=== PATIENT | male | born 1995 | race Caucasian/White ===

== ENCOUNTER 2019-10-05 20:20 | Emergency (ER) | payer MEDICAID ==
[~2019-10-05] VITALS: Ht 185.4 cm; Wt 65.9 kg
[2019-10-05 22:18] VITALS: BP 114/64
== END 2019-10-05 22:20 | disposition home or self-care (01) ==
LOC: ER 20:20
DX: F07.81 Postconcussional syndrome (principal); Z88.1 Allergy status to other antibiotic agents; W01.10XA Fall on same level from slipping, tripping and stumbling with subsequent striking against unspecified object, initial encounter; Y93.89 Activity, other specified; Y92.89 Other specified places as the place of occurrence of the external cause; Y99.8 Other external cause status
CPT/HCPCS: 70450; 72125; 99284